=== PATIENT | male | born 1950 | race Caucasian/White ===

== ENCOUNTER 2016-07-03 06:53 | Observation (INO) | payer OTHER ==
[2016-06-26 12:53] LABS: PARTIAL THROMBO TIME 28.6 SEC (22.5-37.2); PROTIME (NOT ORD) 13.4 SEC (12.0-14.5)
[2016-06-26 12:54] LABS: BASOPHILS 0.5 %; BASOPHILS ABSOLUTE 0.06 10/3/uL (0.0-0.16); EOSINOPHILS 2.8 %; EOSINOPHILS ABSOLUTE 0.33 10/3/uL (0.0-0.53); HEMATOCRIT 39.7 % (40.0-51.0); HEMOGLOBIN 13.8 g/dL (13.6-17.8); IMMATURE GRANULOCYTES 0.3 %; IMMATURE GRANULOCYTES ABSOLUTE 0.04 10/3/uL (0.0-0.11); LYMPHOCYTES 28.9 %; LYMPHOCYTES ABSOLUTE 3.43 10/3/uL (0.67-4.30); MEAN CORPUS HGB CONC 34.8 g/dL (32.0-36.0); MEAN CORPUSCULAR HEMOGLOB 31.2 pg (26.0-34.0); MEAN CORPUSCULAR VOLUME 89.6 fL (80-100); MEAN PLATELET VOLUME 8.6 fL (9.2-13.0); MONOCYTES 8.4 %; NEUTROPHILS 59.1 %; NEUTROPHILS ABSOLUTE 6.99 10/3/uL (2.02-8.40); PLATELET COUNT 415 10/3/uL (150-400); RBC DISTRIBUTION WIDTH 13.1 % (12.0-16.0); RED CELL COUNT 4.43 10/6/uL (4.7-6.1); WHITE BLOOD CELLS 11.9 10/3/uL (4.5-10.5)
[2016-06-26 12:55] LABS: MANUAL DIFF NO %
[2016-06-26 12:57] LABS: CALCIUM, SERUM 9.2 MG/DL (8.5-10.4); CHLORIDE, SERUM 101 MMOL/L (96-112); CO2 (CARBON DIOXIDE) 30 MMOL/L (24-34); GFR AFRICAN AMERICAN 81 ML/MIN (>=60); GFR NON AFRICAN AMERICAN 70 ML/MIN (>=60); GLUCOSE, SERUM 101 MG/DL (60-99); POTASSIUM, SERUM 4.3 MMOL/L (3.5-5.3); SODIUM, SERUM 140 MMOL/L (135-148)
[2016-06-26 12:58] LABS: BUN (BLOOD UREA NITROGEN) 26 MG/DL (6-23)
[2016-06-26 13:03] LABS: ASCORBIC ACID (UR NOT ORDER) NEG (NEG); BILIRUBIN, URINE NEGATIVE (NEG); KETONE, URINE NEGATIVE (NEG); LEUKOCYTE ESTERASE(NOT OR MOD (NEG); WBC (NOT ORDERED) (RFLEX) 34 (0-5)
--- NOTE | ~2016-07-03 | OP ---
Record Of Operation [facility] [address] [place]. [address] NAME: GUME MCCARTHY : 48 STATUS : ADM Lance PAT#: [id number] AGE: 65 ADM/REG DATE : 07/03/16 MR#: [id number] REPORT SERV DATE: 07/03/16 DICTATED BY: NAVEED CANO DATE: 07/03/16 REPORT STATUS : Draft TRANSCRIBED BY: MODL DATE: 07/03/16 DATE OF PROCEDURE: 07/03/2016 PREOPERATIVE DIAGNOSES: 1. Partial staghorn calculus, lower pole left kidney. 2. History of left UPJ repair. POSTOPERATIVE DIAGNOSES: 1. Partial staghorn calculus, lower pole left kidney. 2. History of left UPJ repair. 3. 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 PROCEDURES: 1. Cystoscopy. 2. Urethral dilation. 3. Left retrograde pyelogram. 4. Left ureteral renal scopic stone extraction with in situ laser lithotripsy and left double-J stent placement. SURGEON: Naveed Cano M.D. ANESTHESIA: General. BLOOD LOSS: 5 mL. FLUID REPLACEMENT: 850 mL crystalloid. DRAINS: 6-Cymro, 26-cm double-J left ureteral stent with the strings removed and an 18- Cymro Quechan style catheter in the bladder. INDICATION: A 65-year-old male who has had a left UPJ repair and has developed a partial staghorn calculus in the lower pole of the left kidney. FINDINGS: The stricture at the penoscrotal junction of the urethra. TECHNIQUE: The patient was identified, brought to the operating room, administered general anesthetic agent by the Anesthesia Service and intubated. He was positioned into the dorsal lithotomy position. The penis, groin, scrotum, and perineum were prepped and draped in the usual sterile fashion. A 22-Cymro cystoscopic sheath with 30-degree lens was used for cystourethroscopy. Anterior urethra was normal until I came to the penoscrotal junction, at which point, a stricture was encountered. I removed the cystoscope and dilated the urethra to 24-Cymro with Dickson sounds. I then reinserted the cystoscope and navigated past the stricture into the bulbous urethra and then into the prostatic urethra which was enlarged. The bladder was entered and surveyed. It did appear to be a diverticulum on the left side of the bladder. Record Of Operation [facility] [address] [place]. [address] NAME: GUME MCCARTHY : 48 STATUS : ADM Lance PAT#: [id number] AGE: 65 ADM/REG DATE : 07/03/16 MR#: [id number] REPORT SERV DATE: 07/03/16 DICTATED BY: NAVEED CANO DATE: 07/03/16 REPORT STATUS : Draft TRANSCRIBED BY: MODMaureen DATE: 07/03/16 Left ureteral orifice was identified and cannulated with a 5-Cymro open-ended catheter. Left retrograde pyelogram was obtained. It showed a normal course and caliber of the left ureter and a nice anastomosis at the UPJ. The lower pole was full of stones. He had very small renal pelvis and small infundibula. I passed a 0.35 wire up the left ureter. I removed the cystoscope and reintroduced the cystoscope with the wire. I then passed a 0.38 Stiff wire up the left ureter. I removed the cystoscope over the Stiff wire and dilated the ureter. The actual dilator was up to 14- Cymro. I then placed a 12-Cymro ureteral access sheath up into the proximal ureter. I removed the inner core and used the flexible ureteroscope. I advanced the flexible ureteroscope through the sheath up into the renal pelvis. I surveyed the calices and found the calyx full of the stone. It was a difficult location. Nevertheless, I used the holmium laser fiber and put it on "dusting" mode. I then began fragmenting the stone into multiple small fragments. Intermittently, I would remove some of the larger fragments. I successfully cleared the entire lower pole of all stones seen on fluoroscopy and in the calices. Many small little chips were left in the kidney. The kidney was irrigated. In the end, I filled the renal pelvis and diluted with contrast material. There is no extravasation. The ureteroscope was removed, and the access sheath was removed leaving the safety wire behind. I back-loaded the cystoscope onto the wire, positioned a 6-Cymro, 26-cm double-J left ureteral stent. The proximal end was coiled into the renal pelvis under fluoroscopy to distal end of the bladder. The string and wire were removed. I left the bladder full, placed that same Stiff wire into the bladder through the cystoscope and removed the cystoscope. Over the wire, I positioned an 18-Cymro Quechan style catheter. I filled the catheter balloon with 10 mL of sterile water and removed the wire. I did a cystogram. No extravasation was noted. The catheter was left to drainage. The stones were sent for analysis. The patient was awakened and taken to the recovery unit in stable and satisfactory condition. PF/MODL Naveed Cano M.D. / [id number] CC: Naveed Cano M.D.
[~2016-07-03 06:53] MED LIST: ASAB PO; AUG500 PO; LIPITOR80 MG PO; LISINOPRIL40 MG PO
[2016-07-04] MEDS ORDERED: CIP5 PO (09:30)
[2016-07-04] MEDS ORDERED: NORCO1 TA1 PO (09:31)
[2016-07-07 21:32] LABS: STONE COMPOSITION TWO DNR (())
== END 2016-07-04 11:23 | disposition home or self-care (01) ==
LOC: SDC/OF 06:53 → PACU 12:13 → 4SO 13:27
PROVIDERS: Urology
PROC: 0T778DZ Dilation of Left Ureter with Intraluminal Device, Via Natural or Artificial Opening Endoscopic (ICD-10-PCS; 2016-07-03)
PROC: BT1FYZZ Fluoroscopy of Left Kidney, Ureter and Bladder using Other Contrast (ICD-10-PCS; 2016-07-03)
PROC: 0T7D8ZZ Dilation of Urethra, Via Natural or Artificial Opening Endoscopic (ICD-10-PCS; 2016-07-03)
PROC: 0TC18ZZ Extirpation of Matter from Left Kidney, Via Natural or Artificial Opening Endoscopic (ICD-10-PCS; principal; 2016-07-03 07:45)
DX: N20.0 Calculus of kidney (principal); N35.9 Urethral stricture, unspecified; E78.00 Pure hypercholesterolemia, unspecified; I25.10 Atherosclerotic heart disease of native coronary artery without angina pectoris; F17.210 Nicotine dependence, cigarettes, uncomplicated; G89.29 Other chronic pain; I10 Essential (primary) hypertension; Z79.2 Long term (current) use of antibiotics; Z79.82 Long term (current) use of aspirin; Z79.899 Other long term (current) drug therapy; Z87.442 Personal history of urinary calculi; Z95.1 Presence of aortocoronary bypass graft; Z98.890 Other specified postprocedural states
CPT/HCPCS: 74420; 80048; 81001; 82365; 85025; 85610; 85730; 87077; 87086; 87186; 96374; 96376; A9270-GY; C1758; C1894; C2617; G0378; J2250; J2270; J2370; J2405; J2710; J3010; Q9967